=== PATIENT | male | born 1935 | race Caucasian/White ===

== ENCOUNTER 2017-04-11 01:54 | Emergency (ER) | payer MEDICARE, BC ==
[2017-04-11] MEDS ORDERED: MORPHINE SULFATE 10 MG/ML SOL IV ONE (01:58)
[2017-04-11] MEDS ORDERED: MORPHINE SULFATE 10 MG/ML SOL ONE (01:59)
[2017-04-11] MEDS ORDERED: SOLUMEDROL 125 MG/2 ML 125 MG/2 ML PDS ONE (02:03)
[2017-04-11] MEDS ORDERED: SODIUM CHLORIDE 0.9% FLUSH 10 ML SOL IV PRN (02:08)
[2017-04-11] MEDS ORDERED: SOLUMEDROL 125 MG/2 ML 125 MG/2 ML PDS IV ONE (02:08)
[2017-04-11 02:13] LABS: BASOPHILS % (AUTO) 1 % (0-3); EOSINOPHILS % (AUTO) 2 % (0-9); HEMATOCRIT 51 % (39-53); MEAN CORPUSCULAR HGB CONC 34.7 gm/dl (32.0-36.0); MONOCYTES % (AUTO) 5.8 % (0-12); NEUTROPHILS % (AUTO) 58.6 % (37-80)
[2017-04-11 02:21] LABS: MEAN CORPUSCULAR VOLUME 99 fL (80-100)
[2017-04-11] MEDS ORDERED: ATROPINE 0.1 MG/ML SOL ONE (02:21)
[2017-04-11] MEDS ORDERED: LIDOCAINE HCL 2% (100 MG) CARP ONE (02:21)
[2017-04-11] MEDS ORDERED: ETOMIDATE 2 MG/ML SOL IV ONE ×3 (02:22→02:52)
[2017-04-11] MEDS ORDERED: SUCCINYLCHOLINE CHLORIDE 20 MG/ML SOL IV ONE ×2 (02:22→02:54)
[2017-04-11] MEDS ORDERED: ROCURONIUM BROMIDE 10 MG/ML SOL IV ONE ×2 (02:22→02:24)
[2017-04-11 02:34] LABS: ALBUMIN 3.9 gm/dl (3.4-5.0); CALCIUM 8.5 mg/dl (8.5-10.1); POTASSIUM 3.8 mMol/L (3.5-5.1)
[2017-04-11 02:35] LABS: ABG PH 7.18 (7.35-7.45)
[2017-04-11 02:41] VITALS: O2SAT 97
[2017-04-11] MEDS ORDERED: NOREPINEPHRINE BITARTRATE 4 MG/4 ML SOL IV ONE (03:04)
[2017-04-11] MEDS ORDERED: SODIUM CHLORIDE 0.9% 1000ML 1,000 ML IV ONE (03:07)
[2017-04-11] MEDS ORDERED: NOREPINEPHRINE BITARTRATE 4 MG/4 ML SOL IV SCH (03:15)
[2017-04-11 04:09] VITALS: BP 91/59; PULSE 82; RESP 12; TEMP 97
== END 2017-04-11 03:27 | disposition short-term general hospital (02) | DRG 189 ==
LOC: ED 01:54
DX: J96.01 Acute respiratory failure with hypoxia (principal); J96.02 Acute respiratory failure with hypercapnia
CPT/HCPCS: 31500; 36415; 36600; 71010; 80053; 82803; 83880; 84484; 85025; 85378; 87040; 93005; 99291; J0330; J0461; J2001; J2270; J2930